=== PATIENT | female | born 1945 | race Caucasian/White ===

== ENCOUNTER 2018-06-16 08:15 | Inpatient (IN) | payer OTHER ==
[~2018-06-16] VITALS: Ht 157.5 cm; Wt 59.9 kg
[2018-06-16] MEDS ORDERED: SERTRALINE HCL100 MG PO (09:44)
[2018-06-16] MEDS ORDERED: DILTIAZEM 24HR120 MG PO (09:45)
[2018-06-16] MEDS ORDERED: LISINOPRIL40 MG PO (09:45)
[2018-06-16] MEDS ORDERED: DOXAZOSIN MESYLA2 MG PO (09:46)
[2018-07-07] MEDS ORDERED: GABAPENTIN800 MG PO (12:16)
[2018-07-07] MEDS ORDERED: DOCUSATE SODIU100 MG PO (12:16)
[2018-07-07] MEDS ORDERED: CLONAZEPAM1 MG PO (12:18)
[2018-07-07] MEDS ORDERED: AMOX-CLAV 875-1 EACH PO (12:18)
[2018-07-07] MEDS ORDERED: PERCOCET 5-3251 EACH PO (12:18)
== END 2018-07-07 15:18 | disposition home or self-care (01) | DRG 455 ==
LOC: O/R 07-06 05:30 → SURG 07-06 05:30 → SURH 07-06 08:15 → SURG 07-06 15:02
PROVIDERS: ADMIT Orthopaedic Surgery Orthopaedic Surgery of the Spine
PROC: 0SG1071 Fusion of 2 or more Lumbar Vertebral Joints with Autologous Tissue Substitute, Posterior Approach, Posterior Column, Open Approach (ICD-10-PCS; 2018-07-06)
PROC: 0SG10AJ Fusion of 2 or more Lumbar Vertebral Joints with Interbody Fusion Device, Posterior Approach, Anterior Column, Open Approach (ICD-10-PCS; 2018-07-06)
PROC: 0SG10J1 Fusion of 2 or more Lumbar Vertebral Joints with Synthetic Substitute, Posterior Approach, Posterior Column, Open Approach (ICD-10-PCS; 2018-07-06)
PROC: 0ST20ZZ Resection of Lumbar Vertebral Disc, Open Approach (ICD-10-PCS; 2018-07-06)
PROC: 07DS3ZZ Extraction of Vertebral Bone Marrow, Percutaneous Approach (ICD-10-PCS; 2018-07-06)
PROC: 0SG10A0 Fusion of 2 or more Lumbar Vertebral Joints with Interbody Fusion Device, Anterior Approach, Anterior Column, Open Approach (ICD-10-PCS; principal; 2018-07-06 13:30)
DX: M48.062 Spinal stenosis, lumbar region with neurogenic claudication (principal); M47.26 Other spondylosis with radiculopathy, lumbar region; M51.16 Intervertebral disc disorders with radiculopathy, lumbar region; I10 Essential (primary) hypertension; F32.89 Other specified depressive episodes; F41.8 Other specified anxiety disorders; E78.00 Pure hypercholesterolemia, unspecified

== ENCOUNTER 2018-07-18 11:24 | Emergency (ER) | payer OTHER ==
[~2018-07-18] VITALS: Ht 160 cm; Wt 59.9 kg
[~2018-07-18 11:24] MED LIST: AMOX-CLAV 875-1 EACH PO; CLONAZEPAM1 MG PO; DILTIAZEM 24HR120 MG PO; DOCUSATE SODIU100 MG PO; DOXAZOSIN MESYLA2 MG PO; GABAPENTIN800 MG PO; LISINOPRIL40 MG PO; PERCOCET 5-3251 EACH PO; SERTRALINE HCL100 MG PO
== END 2018-07-18 12:52 | disposition home or self-care (01) ==
LOC: ER 11:24
DX: T21.25XA Burn of second degree of buttock, initial encounter (principal); X12.XXXA Contact with other hot fluids, initial encounter; Y93.89 Activity, other specified; Y92.89 Other specified places as the place of occurrence of the external cause; Y99.8 Other external cause status